=== PATIENT | male | born 1950 | race Caucasian/White ===

== ENCOUNTER 2017-04-21 07:17 | Day surgery (SDC) | payer BC ==
[~2017-04-21] VITALS: Ht 188 cm; Wt 99.8 kg
[~2017-04-21 07:17] MED LIST: ALLOPURINOL300 MG PO; ASPIR 8181 MG PO; ASPIR-TRIN325 MG PO; CRESTOR40 MG PO; FLONASE ALLERG9.9 ML NS; LISINOPRIL20 MG PO; MEGARED OMEGA-1 EAC1 PO; METOPROLOL SUCC50 MG PO; METOPROLOL TART50 MG PO; MULTI VITAMIN1 EACH PO; NAPROSYN500 MG PO; OMEPRAZOLE20 MG PO; SIMVASTATIN80 MG PO
== END 2017-04-21 09:08 | disposition home or self-care (01) ==
LOC: OPS 07:17 → DS 07:17 → OPS 08:30 → DS 08:30 → OPS 09:08 → DS 09:15
PROVIDERS: Ophthalmology
PROC: 08RK3JZ Replacement of Left Lens with Synthetic Substitute, Percutaneous Approach (ICD-10-PCS; principal; 2017-04-21 08:30)
DX: H25.812 Combined forms of age-related cataract, left eye (principal); I10 Essential (primary) hypertension; E78.00 Pure hypercholesterolemia, unspecified; Z87.891 Personal history of nicotine dependence; Z98.890 Other specified postprocedural states; Z79.899 Other long term (current) drug therapy
CPT/HCPCS: 140

== ENCOUNTER 2017-05-14 07:39 | Day surgery (SDC) | payer BC ==
[~2017-05-14] VITALS: Ht 188 cm; Wt 99.8 kg
== END 2017-05-14 09:45 | disposition home or self-care (01) ==
LOC: DS 07:39 → OPS 07:39 → DS 09:00 → OPS 09:45
PROVIDERS: Ophthalmology
PROC: 08RJ3JZ Replacement of Right Lens with Synthetic Substitute, Percutaneous Approach (ICD-10-PCS; principal; 2017-05-14 09:00)
DX: H25.811 Combined forms of age-related cataract, right eye (principal); I10 Essential (primary) hypertension; E78.00 Pure hypercholesterolemia, unspecified; Z79.899 Other long term (current) drug therapy; Z87.891 Personal history of nicotine dependence; Z79.82 Long term (current) use of aspirin
CPT/HCPCS: J2250

== ENCOUNTER 2021-08-09 22:21 | Emergency (ER) | payer MEDICARE, OTHER ==
[~2021-08-09] VITALS: Ht 188 cm; Wt 99.8 kg
[~2021-08-09 22:21] MED LIST changes: +ASPIR-LOW81 MG PO; +FISH OIL 1,0001 EAC2 PO; -MEGARED OMEGA-1 EAC1 PO; +PANTOPRAZOLE SO40 MG PO
--- NOTE | 2021-08-10 07:19 | EKG ---
[facility] [address] [facility] [place], [place] [address] Signed Normal sinus rhythm with sinus arrhythmia Inferior infarct , age undetermined Abnormal ECG No previous ECGs available Confirmed by MARY WALSH MD ([id number]) on 08/10/2021 7:19:14 AM Electronically Signed By: MARY WALSH MD 08/10/21 0719 PATIENT NAME: EVERETTVICKIE JR Electrocardiogram DATE OF : 48 PHYSICIAN: MARY WALSH MD REPORT #: [id number] REPORT IS CONFIDENTIAL AND NOT TO BE RELEASED WITHOUT AUTHORIZATION
== END 2021-08-10 00:49 | disposition home or self-care (01) ==
LOC: ED 22:21
DX: R07.9 Chest pain, unspecified (principal); R06.02 Shortness of breath; I10 Essential (primary) hypertension; M10.9 Gout, unspecified; I25.10 Atherosclerotic heart disease of native coronary artery without angina pectoris; Z87.891 Personal history of nicotine dependence; Z88.5 Allergy status to narcotic agent; Z79.899 Other long term (current) drug therapy; Z79.82 Long term (current) use of aspirin; Z20.822 Contact with and (suspected) exposure to COVID-19
CPT/HCPCS: 36415; 71045; 80053; 83735; 83880; 84484; 85025; 87502; 93005; 93010; 99285-25; C9803; U0003

== ENCOUNTER 2023-04-02 09:22 | Day surgery (SDC) | payer OTHER, MEDICARE ==
[~2023-04-02] VITALS: Ht 188 cm; Wt 108.6 kg
--- NOTE | ~2023-04-02 | CONS ---
[facility] [address] [place], [place] [address] Draft DATE OF CONSULTATION: 04/02/2023 REQUESTING PHYSICIAN: Dr. Alcantara. PROBLEM: Possible recurrent esophageal obstruction with food. HISTORY OF PRESENT ILLNESS: This 72-year-old white man was having stool last night and had a feeling of obstruction in his distal esophagus. Overtime he waited and thought that he might have passed the material completely himself. This morning he took two pills and a sip of water and water returned and he feels that there are still obstructive symptoms. He presented to the emergency room and was evaluated by Dr. Alcantara. He was not noted to have hypersalivation or other overt signs of obstruction. He was challenged with sip of water, which appeared to not be well swallowed. On that basis, consultation was undertaken for consideration of endoscopic removal. Notes are reviewed from the medical record from October 07, 2017, at which time he had a similar presentation. Upper endoscopy performed did show food impaction in the distal esophagus related to meat. He was noted to have chronic distal esophagitis without obvious stricture. No evidence of hiatal hernia. It is unclear if eosinophilic esophagitis was diagnosed, it appears not to have been, though it is unclear if there were biopsies obtained. The patient has remained on PPI medication since that time. He has not had accelerating symptoms of dysphagia up until last night at all. He has been taking pantoprazole 40 mg daily. MEDICATIONS: His other medications include allopurinol, aspirin, fluticasone spray for allergies, lisinopril, metoprolol, multivitamin, omega-3 fatty acids and Crestor. SOCIAL HISTORY: He is retired laundrette owner. He lives in [place]. He gets much of his care from the [facility]. REVIEW OF SYSTEMS: He denies any actual shortness of breath. He has had no hematemesis. He is not having hypersalivation nor has he thus far. He denies any abdominal pain. PHYSICAL EXAMINATION: GENERAL: Pleasant white man who does not appear to be in significant distress at this PATIENT NAME: VICKIE FLOYD JR CONSULTATION DATE OF : 48 REPORT #: [id number] PHYSICIAN: BISHNU ADAMS MD PCP: NO PRIMARY CARE PHYSICIAN REPORT IS CONFIDENTIAL AND NOT TO BE RELEASED WITHOUT AUTHORIZATION [facility] [address] [place], [place] [address] Draft time. NECK: Trachea is midline. He has no hoarseness. There is no thyromegaly. ABDOMEN: Somewhat obese but soft, easily palpated. There is no mass, tenderness, or ascites. EXTREMITIES: Show no clubbing, cyanosis, or edema. LABORATORY DATA: Lab studies are pending, which includes a CBC and a basic metabolic. No x-rays have been obtained. ASSESSMENT: The patient has a similar presentation for food impaction as he did more than five years ago. He has been on PPI medication. I think there is a reasonable chance that there is no obstruction at this time but may have residual sensory effects from recent obstruction including edema and so on. In any case, upper endoscopy would be reasonable to better ascertain the possibility of a food impaction for which removal would be appropriate. The risk of bleeding, infection, perforation, failure to identify an abnormality and so forth were all reviewed in detail. He understands and agrees to proceed. He has yet to have an IV started and labs obtained and we will obtain those prior to embarking upon endoscopic evaluation. We will have the assistance of anesthesia services which might include an endotracheal intubation as a possibility of food impaction is reasonably high and protection of airway would be important. It is not invariably necessary but can be beneficial. We discussed that as well. MD HOUSTON Guardado/GAELL /[id number] cc: Suman Alcantara MD Copies: SUMAN ALCANTARA MD PATIENT NAME: VICKIE FLOYD CONSULTATION DATE OF : 48 REPORT #: [id number] PHYSICIAN: BISHNU ADAMS MD PCP: NO PRIMARY CARE PHYSICIAN REPORT IS CONFIDENTIAL AND NOT TO BE RELEASED WITHOUT AUTHORIZATION [facility] [address] [facility] [place] [address] Draft ~ PATIENT NAME: VICKIE FLOYD CONSULTATION DATE OF : 48 REPORT #: [id number] PHYSICIAN: BISHNU ADAMS MD PCP: NO PRIMARY CARE PHYSICIAN REPORT IS CONFIDENTIAL AND NOT TO BE RELEASED WITHOUT AUTHORIZATION
--- NOTE | ~2023-04-02 | OR ---
[facility] [place] [facility] [address] [place], [place] [address] Draft DATE OF OPERATION: 04/02/2023 SURGEON: Bishnu Adams MD PREOPERATIVE DIAGNOSIS: Food impaction, distal esophagus. POSTOPERATIVE DIAGNOSES: 1. Food impaction, distal esophagus. 2. 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 No clear evidence of eosinophilic esophagitis. PROCEDURES: 1. Esophagogastroduodenoscopy with food disimpaction. 2. Upper endoscopy with biopsy of stomach, duodenum and esophagus. ANESTHESIA: General endotracheal, Bishnu Hall CRNA. INDICATION: This 72-year-old white man is a patient who was seen rather in the emergency room and evaluation by Dr. Alcantara. He is known to me from the past having undergone upper endoscopy and extraction of food impaction for clinical findings of stricture in 2018. The patient continues to take Protonix on a daily basis. Last night he was eating a pork sandwich and had the sensation of food stuck in the distal esophagus. He waited overnight and tried water and other interventions to allow passage of what he felt was an impaction. He presented to the emergency room where he was evaluated by Dr. Alcantara. He did not have hypersalivation and clinically appeared reasonably good, but was unable to tolerate sips of water and on that basis, considered to have persistent impaction of food. He is now to undergo upper endoscopy to free the esophagus of the impaction and other indicated procedures including biopsy. He understands the risk of bleeding, infection, and perforation related to the procedure and wished to proceed. FINDINGS: Indeed there was food impaction in the distal esophagus. Part was extracted upon withdrawal of the impaction. The remaining pushed forward into the stomach itself. The obstruction was in the distal esophagus. It did not appear to have a malignant change. There was chronic inflammatory change, however. The midesophagus had no felinization, however biopsies were obtained there and in the distal esophagus to assess for possible eosinophilic esophagitis. The stomach itself showed mild inflammatory change of the PATIENT NAME: VICKIE FLOYD JR OPERATIVE REPORT DATE OF : 48 REPORT #: [id number] PHYSICIAN: BISHNU ADAMS MD PCP: NO PRIMARY CARE PHYSICIAN REPORT IS CONFIDENTIAL AND NOT TO BE RELEASED WITHOUT AUTHORIZATION [facility] [place] [facility] [address] [place], [place] [address] Draft antrum. CLOtest was negative 15 minutes postprocedure. Duodenum appeared normal. Biopsies were obtained to assess for celiac disease. There was a hiatal hernia. PROCEDURE IN DETAIL: The patient was brought to the endoscopy suite and in the supine position, given a general endotracheal anesthetic. Preoperative antibiotic of Ancef was given. A bite block was placed. An Olympus video upper endoscope was passed in the hypopharynx and manipulated around the intubated vocal cords into the esophagus without problem. The proximal portion was normal. The distal portion had turbid fluid that remained. This was suctioned free. Scope was advanced to the distal esophagus where obvious food impaction was still present. A three-prong grasper was used to morcellate the food impaction typical of pork type meat. It was extracted at least twice. The scope was then inserted again and gentle manipulation of the scope allowed passage around the impaction into the stomach. Scope was withdrawn and the remaining impacted food was flushed into the stomach itself. The scope was withdrawn a few times through the esophagus and irrigated to clear any particulate matter. There appeared in the distal esophagus to be a chronic low-grade stricture. Certainly, no evidence of malignancy, Guzman epithelium or other similar finding. The scope was reinserted into the stomach. Antrum appeared mildly inflamed. Pylorus was normal. Scope was passed through into the duodenum. Duodenum was normal. Biopsies were obtained to assess for celiac disease. The scope was withdrawn. Biopsies taken of the antrum for both ABDULKADIR and pathologic testing. Retroflexed view showed a moderate-size hiatal hernia. The scope was then withdrawn to the distal esophagus and biopsies taken there and withdrawn further to the midesophagus for biopsies. He did not have typical appearance of the eosinophilic esophagitis and most likely this represented a reflux-related stricture as the secondary impaction. The scope was withdrawn and removed. The patient was taken to the recovery room in good condition. CONCLUDING DIAGNOSIS: Food impaction of distal esophagus related to a benign-appearing stricture. Biopsies are pending. PLAN: He will continue with his PPI, Protonix 40 mg daily. We will see him back in the office in 4-6 weeks; he was already scheduled to see us back for screening colonoscopy and we will review his findings at that time as well. Bishnu Adams MD PATIENT NAME: VICKIE FLOYD JR OPERATIVE REPORT DATE OF : 48 REPORT #: [id number] PHYSICIAN: BISHNU ADAMS MD PCP: NO PRIMARY CARE PHYSICIAN REPORT IS CONFIDENTIAL AND NOT TO BE RELEASED WITHOUT AUTHORIZATION [address] [address] Draft /[facility] /[id number] cc: Suman Alcanatra MD Copies: SUMAN ALCANTARA MD ~ PATIENT NAME: VICKIE FLOYD JR OPERATIVE REPORT DATE OF : 48 REPORT #: [id number] PHYSICIAN: BISHNU ADAMS MD PCP: NO PRIMARY CARE PHYSICIAN REPORT IS CONFIDENTIAL AND NOT TO BE RELEASED WITHOUT AUTHORIZATION
[2023-04-02 11:08] LABS: BASOPHILS 1.2 % (0-2); EOSINOPHILS 6.4 % (0-6); HEMATOCRIT 43.1 % (35.0-50.0); HEMOGLOBIN 14.3 g/dL (12.0-18.0); LYMPHOCYTES 26.2 % (24-44); MCH 33.4 (27-36); MCHC 33.1 g/dl (30-36); MCV 100.9 fl (81-99); MONOCYTES 7.5 % (0-12); NEUTROPHILS 58.7 % (39-80); PLATELET COUNT 222 K/uL (140-440); RBC 4.27 M/ul (4.3-5.7); RDW 14.8 (10.5-15.0)
[2023-04-02 11:24] LABS: ALBUMIN 3.8 g/dL (3.4-5.0); ALBUMIN/GLOBULIN RATIO 1.12 (1.1-2.4); BILIRUBIN, TOTAL 0.6 ng/dL (0.2-1.0); BUN/CREATININE RATIO 10.92 (6.0-28.6); CALCIUM 9.5 mg/dL (8.5-10.1); CREATININE, SERUM 1.19 mg/dL (0.70-1.30); PROTEIN, TOTAL 7.2 g/dL (6.4-8.2)
--- NOTE | 2023-04-02 12:45 | NUR ---
04/02/23 Akin5 Nica Davidson 1226 PT TO PACU ORAL AIRWAY IN PLACE, BREATHING SHALLOW, O2 VIA MASK FOGGING NOTED IN MASK. CHIN THRUST NEEDED TO MAINTAIN OPEN AIRWAY
[2023-04-02 13:05] VITALS: BP 158/83
--- NOTE | 2023-04-02 13:49 | NUR ---
1305: PT ARRIVES TO DAY SURGERY UNIT FROM PACU. AWAKE AND ALERT ON ARRIVAL. VSS, RESP EVEN AND UNLABORED. TRACI PO INTAKE AND DENIES PAIN AND NAUSEA. APPLESAUCE PROVIDED. COMFORTABLE WITHOUT NEEDS, CALL LIGHT WITHIN REACH
[2023-04-02 14:10] VITALS: BP 166/84
--- NOTE | 2023-04-02 14:13 | NUR ---
1410: PT WAKES WHEN THIS RN ENTERS THE ROOM. EAGER FOR DC. VSS, RESP EVEN AND UNLABORED. DENIES PAIN AND NAUSEA. DANGLES AT THE BEDSIDE, TRACI WELL. DENIES DIZZINESS AND SOB. SL REMOVED WITH CATH TIP INTACT AND PRESSURE APPLIED, WNL. TO DRESS INDEPENDENTLY FOR DC
--- NOTE | 2023-04-02 14:30 | NUR ---
1415: PT DRESSED AND READY FOR DC. INSTRUCTIONS PROVIDED DISCUSSED AND PT VOICES UNDERSTANDING. DENIES QUESTIONS AND CONCERNS 1420: WHEELED OFF OF UNIT IN WC BY THIS RN. TRANSFERS INTO PASSENGER SIDE OF VEHICLE INDEPENDENTLY AND APPROPRIATELY. NO PHYSICAL S/S OF DISTRESS AT THIS TIME
--- NOTE | 2023-04-08 15:35 | PATH ---
[facility] [address] [place], [place] [address] Signed SPECIMEN(S): A DUODENAL BIOPSY SPECIMEN(S): B ANTRUM/PYLORUS BIOPSY SPECIMEN(S): C DISTAL ESOPHAGEAL BIOPSY SPECIMEN(S): D MID ESOPHAGEAL BIOPSY SPECIMEN SOURCE: A. DUODENAL BIOPSY B. ANTRUM/PYLORUS BIOPSY C. DISTAL ESOPHAGEAL BIOPSY D. MID ESOPHAGEAL BIOPSY CLINICAL HISTORY: Difficulty swallowing. Esophageal obstruction. Postop: Food impaction, stricture, hiatal hernia. FINAL PATHOLOGIC DIAGNOSIS: A. Duodenum, biopsy: - Duodenal mucosa with no significant pathologic changes B. Stomach, antrum/pylorus, biopsy: - Gastric antral mucosa with no significant pathologic changes - Negative for Helicobacter pylori with HE stains C. Esophagus, distal, biopsy: - Esophageal squamous mucosa with no significant pathologic changes D. Esophagus, mid, biopsy: - Esophageal squamous mucosa with no significant pathologic changes BRP MICROSCOPIC EXAMINATION: Histologic sections of all submitted blocks are examined by light microscopy. These findings, together with the gross examination, support the pathologic diagnosis. GROSS DESCRIPTION: A. The specimen, labeled and designated "Rueber, duodenal biopsy," is received in formalin and consists of one lind soft tissue fragment, 0.4 cm. Entirely submitted in (A1). B. The specimen, labeled and designated "Rueber, antrum/pylorus biopsy," is received in formalin and consists of two lind soft tissue fragments, ranging from 0.4-0.5 cm. Entirely submitted in (B1). C. The specimen, labeled and designated "Rueber, distal esophageal biopsy," is received in formalin and consists of four lind soft tissue fragments, ranging PATIENT NAME: VICKIE FLOYD JR PATHOLOGY DATE OF : 48 REPORT #: [id number] PHYSICIAN: CAREN CRUZ PCP: NO PRIMARY CARE PHYSICIAN REPORT IS CONFIDENTIAL AND NOT TO BE RELEASED WITHOUT AUTHORIZATION [facility] [address] [place], [place] [address] Signed from 0.2-0.6 cm. Entirely submitted in (C1). D. The specimen, labeled and designated "Rueber, mid esophageal biopsy," is received in formalin and consists of four lind soft tissue fragments, ranging from 0.4-0.5 cm. Entirely submitted in (D1). VB (under the direct supervision of a pathologist) The Gross Description was prepared using a voice recognition system. The report was reviewed for accuracy; however, sound-alike word errors, addition and/or deletions may occur. If there is any question about this report, please contact Client Services. ADDITIONAL NOTES: Immunohistochemical and/or in situ hybridization studies if performed in this case included appropriate positive controls that reacted as expected. This test was developed and its performance characteristics determined by [facility]. It has not been cleared or approved by the U.S. Food and Drug Administration. The FDA has determined that such clearance or approval is not necessary. This test is used for clinical purposes. It should not be regarded as investigational or for research. [facility] is certified under the Clinical Laboratory Improvement Amendments of 1988 (CLIA) as qualified to perform high complexity clinical laboratory testing. PERFORMING LABORATORY: Technical component was performed by [facility], [address] [place] [address] (CLIA# [id number]). Professional interpretation was performed by [facility], [address] [place] [address] (CLIA#: [id number]). Diagnostician: Shree Mcmullen MD Pathologist Electronically Signed 04/08/2023 Copies: ~ PATIENT NAME: EVERETTVICKIE JR PATHOLOGY DATE OF : 48 REPORT #: [id number] PHYSICIAN: CAREN CRUZ PCP: NO PRIMARY CARE PHYSICIAN REPORT IS CONFIDENTIAL AND NOT TO BE RELEASED WITHOUT AUTHORIZATION
== END 2023-04-02 14:22 | disposition home or self-care (01) ==
LOC: ED 09:22 → DS 11:29 → DSVR 11:29 → DS 14:22
PROVIDERS: Emergency Medicine; ATTEND Surgery
PROC: 0DB78ZX Excision of Stomach, Pylorus, Via Natural or Artificial Opening Endoscopic, Diagnostic (ICD-10-PCS; 2023-04-02)
PROC: 0DC38ZZ Extirpation of Matter from Lower Esophagus, Via Natural or Artificial Opening Endoscopic (ICD-10-PCS; 2023-04-02)
PROC: 0DB28ZX Excision of Middle Esophagus, Via Natural or Artificial Opening Endoscopic, Diagnostic (ICD-10-PCS; principal; 2023-04-02 12:00)
DX: K22.2 Esophageal obstruction (principal); T18.128A Food in esophagus causing other injury, initial encounter; I10 Essential (primary) hypertension; M10.9 Gout, unspecified; I25.10 Atherosclerotic heart disease of native coronary artery without angina pectoris; Z79.899 Other long term (current) drug therapy
CPT/HCPCS: 00731; 36415; 80053; 85025; 99284; J0330; J0690; J1100; J1885; J2405; J7030

== ENCOUNTER 2023-11-21 09:40 | Day surgery (SDC) | payer OTHER ==
[2023-11-19 11:20] VITALS: BP 133/68
[~2023-11-21] VITALS: Ht 188 cm; Wt 102.3 kg
[~2023-11-21 09:40] MED LIST changes: +AMLODIPINE BES2.5 MG PO; +CEFAZOLIN SODIUM 2 GM/20 ML SYR IV SCH; +IBLOOD GLUCOSE TEST STRIP 1 EA TEST VI PRN; +LACTATED RINGER'S 1,000 ML IV SCH; +LIDOCAINE HCL 1% 5 ML SDV INJ ONE; +RAMIPRIL1.25 MG PO
[2023-11-21 09:49] VITALS: BP 145/66
[2023-11-21] MEDS ORDERED: propofoL 200 MG/20 ML VIAL ONE (09:53)
--- NOTE | 2023-11-21 11:47 | NUR ---
11/21/23 1147 Adela Garcia 1134 PT ARRIVED TO PACU ON RA, RESP EVEN AND UNLABORED. PT WAKES EASILY AND DENIES CONCERNS. PLAN OF CARE DISCUSSED, PT ENCOURAGED TO PASS GAS NEEDED. 1146 PT SITTING UP IN BED AND REQUESTING WATER. DENIES CONCERNS.
[2023-11-21 11:58] VITALS: BP 139/73
--- NOTE | 2023-11-22 11:23 | OR ---
[facility] [address] [place], [place] [address] Signed DATE OF OPERATION: 11/21/2023 SURGEON: Bishnu Adams MD PREOPERATIVE DIAGNOSIS: Colon screening. POSTOPERATIVE DIAGNOSES: 1. Extensive (bain) diverticulosis. 2. Polyps x3. PROCEDURES: Total colonoscopy to cecum with cold morcellation polypectomy x1 and cold snare polypectomy x2. ANESTHESIA: Intravenous sedation, propofol infusion; Merrill Arthur CRNA. INDICATION: This 73-year-old white man is a patient of Dalia Gale and underwent colonoscopy a number of years ago in [place], [place]. He was said to have had two polyps then. He currently has no symptoms of bleeding, diarrhea or constipation and no known family history of colon cancer. He was admitted at this time to undergo colonoscopy for screening. He understands the risk of bleeding, infection, and perforation. FINDINGS: The prep was adequate. Complete colonoscopy was undertaken to the cecum. There were three polyps, one in the proximal ascending colon, another in the proximal transverse and another in the low rectum, all excised completely. PROCEDURE IN DETAIL: The patient was brought to the endoscopy suite and placed in lateral decubitus position. He was given Ancef preoperatively for history of joint replacement therapy. After satisfactory sedation by the tooth cutter spur with propofol infusional technique, digital rectal exam was performed which was normal. An Olympus video colonoscope was passed in the rectum and manipulated throughout the colon noting extensive diverticulosis extending from the sigmoid all the way to the right colon. Ultimately, the cecum was entered fully. Irrigation was undertaken as needed. The scope was withdrawn and immediately noted was a small polyp of the proximal Electronically Signed By: BISHNU ADAMS MD 11/22/23 1123 PATIENT NAME: VICKIE FLOYD JR OPERATIVE REPORT DATE OF : 48 REPORT #: [id number] PHYSICIAN: BISHNU ADAMS MD PCP: ZOE PARRA PAC REPORT IS CONFIDENTIAL AND NOT TO BE RELEASED WITHOUT AUTHORIZATION [facility] [address] [place], [place] [address] Signed ascending colon which was excised with cold morcellation technique. Further withdrawal showed diverticula of the right colon and the right transverse colon. A somewhat larger adenomatous appearing polyp, this was excised with cold snare technique and specimen passed for pathology. Further withdrawal showed extensive diverticula but on retroflexed view of the rectum, a somewhat generous 1 cm sessile polyp was noted, this was excised with cold morcellation technique. The base was additionally excised as there was some residual. The scope was then straightened, withdrawn, removed and the patient was taken to the recovery room in good condition. CONCLUDING DIAGNOSES: 1. Polyps x3. 2. Extensive diverticulosis. PLAN: Recommend repeat colonoscopy in 5 years, sooner if symptoms should develop. Recommend high-fiber diet or fiber supplement such as Metamucil on the basis of diverticulosis. He will return to the ongoing care of NGUYEN Spear. MD HOUSTON Guardado/SHAWN /[id number] cc: NGUYEN Spear Copies: ~ Electronically Signed By: BISHNU ADAMS MD 11/22/23 1123 PATIENT NAME: VICKIE FLOYD JOES OPERATIVE REPORT DATE OF : 48 REPORT #: [id number] PHYSICIAN: BISHNU ADAMS MD PCP: ZOE PARRA PAC REPORT IS CONFIDENTIAL AND NOT TO BE RELEASED WITHOUT AUTHORIZATION
--- NOTE | 2023-11-24 15:39 | PATH ---
[facility] [address] [place], [place] [address] Signed SPECIMEN(S): A ASCENDING/RIGHT COLON POLYP SPECIMEN(S): B TRANSVERSE COLON POLYP SPECIMEN(S): C RECTAL POLYP SPECIMEN SOURCE: A. ASCENDING/RIGHT COLON POLYP B. TRANSVERSE COLON POLYP C. RECTAL POLYP CLINICAL HISTORY: Pre-op: History of polyps. Post-op: Diverticulosis. FINAL PATHOLOGIC DIAGNOSIS: A. Ascending/right colon polyp: - Tubular adenoma (one fragment). B. Transverse colon polyp: - Tubular adenoma (two fragments). C. Rectal polyp: - Hyperplastic polyp (two fragments). JVR:cml MICROSCOPIC EXAMINATION: Histologic sections of all submitted blocks are examined by light microscopy. These findings, together with the gross examination, support the pathologic diagnosis. GROSS DESCRIPTION: A. The specimen, labeled and designated "Rueber, ascending/right colon polyp," is received in formalin and consists of one lind soft tissue fragment, 0.2 cm. Entirely submitted in (A1). B. The specimen, labeled and designated "Rueber, transverse colon polyp," is received in formalin and consists of three lind soft tissue fragments, ranging from 0.2-0.4 cm. Entirely submitted in (B1). C. The specimen, labeled and designated "Rueber, rectal polyp," is received in formalin and consists of four lind soft tissue fragments, ranging from 0.3-0.5 cm. Entirely submitted in (C1). VB (under the direct supervision of a pathologist) The Gross Description was prepared using a voice recognition system. The report was reviewed for accuracy; however, sound-alike word errors, addition and/or deletions may occur. If there is any question about this report, please contact Client Services. PATIENT NAME: VICKIE FLOYD JR PATHOLOGY DATE OF : 48 REPORT #: [id number] PHYSICIAN: CAREN PATHOLOGY PCP: ZOE PARRA PAC REPORT IS CONFIDENTIAL AND NOT TO BE RELEASED WITHOUT AUTHORIZATION [facility] [address] [place], [place] [address] Signed ADDITIONAL NOTES: Immunohistochemical and/or in situ hybridization studies if performed in this case included appropriate positive controls that reacted as expected. This test was developed and its performance characteristics determined by [facility]. It has not been cleared or approved by the U.S. Food and Drug Administration. The FDA has determined that such clearance or approval is not necessary. This test is used for clinical purposes. It should not be regarded as investigational or for research. [facility] is certified under the Clinical Laboratory Improvement Amendments of 1988 (CLIA) as qualified to perform high complexity clinical laboratory testing. PERFORMING LABORATORY: Technical component was performed by [facility], [address] [place] [address] (CLIA# [id number]). Professional interpretation was performed by [facility], [address] [place] [address], [place] [address] (CLIA#: [id number]). Diagnostician: Jaren Daley MD Pathologist Electronically Signed 11/24/2023 Copies: ~ PATIENT NAME: EVERETTVICKIE JR PATHOLOGY DATE OF : 48 REPORT #: [id number] PHYSICIAN: CAREN PATHOLOGY PCP: ZOE PARRA PAC REPORT IS CONFIDENTIAL AND NOT TO BE RELEASED WITHOUT AUTHORIZATION
== END 2023-11-21 12:08 | disposition home or self-care (01) ==
LOC: OPS 09:40 → DS 09:40 → OPS 11:00 → DS 11:00 → OPS 12:08
PROVIDERS: ATTEND Surgery
PROC: 0DBL8ZZ Excision of Transverse Colon, Via Natural or Artificial Opening Endoscopic (ICD-10-PCS; 2023-11-21)
PROC: 0DBP8ZZ Excision of Rectum, Via Natural or Artificial Opening Endoscopic (ICD-10-PCS; 2023-11-21)
PROC: 0DBF8ZZ Excision of Right Large Intestine, Via Natural or Artificial Opening Endoscopic (ICD-10-PCS; principal; 2023-11-21 11:00)
DX: Z12.11 Encounter for screening for malignant neoplasm of colon (principal); D12.2 Benign neoplasm of ascending colon; D12.3 Benign neoplasm of transverse colon; K62.1 Rectal polyp; K57.30 Diverticulosis of large intestine without perforation or abscess without bleeding; E66.9 Obesity, unspecified; I10 Essential (primary) hypertension; I25.2 Old myocardial infarction; Z68.29 Body mass index [BMI] 29.0-29.9, adult; Z95.5 Presence of coronary angioplasty implant and graft
CPT/HCPCS: J0690; J2704; J7121

== ENCOUNTER 2024-02-21 19:16 | Day surgery (SDC) | payer OTHER ==
[~2024-02-21] VITALS: Ht 188 cm; Wt 107.6 kg
--- NOTE | ~2024-02-21 | HP ---
[facility] [address], [place] [address] Draft ADMISSION DATE: 02/21/2024 ADMISSION HISTORY AND PHYSICAL ER CONSULTATION REPORT TIME: 08:30 p.m. REQUESTING PHYSICIAN: Dr. Placido Arias PROBLEM: Recurrent food impaction. HISTORY OF PRESENT ILLNESS: This 73-year-old white man was eating a meal tonight at about 6:00 p.m. when half way through the meal began having trouble swallowing and with symptoms highly suggestive of food impaction. He is known to me from the past having undergone two food extractions in the past. He has never shown sign of the eosinophilic esophagitis and had only a low-grade stricture on his last episode of this in the past few years. The patient gets most of his care from the [facility]. He tried to "wash it down" with some soda pop, which was not effective. He presented to the emergency room where he was thoroughly evaluated by Dr. Arias and found most likely to have persistent food impaction as he has episodic hypersalivation and eructation of saliva. PAST MEDICAL HISTORY: Notable for bilateral knee replacement. He has had coronary stenting in the past. He takes no significant anticoagulants, specifically Plavix or other anticoagulant. HOME MEDICATIONS: Include allopurinol, amlodipine, aspirin daily, fluticasone spray for nostril, lisinopril metoprolol, multivitamin, pantoprazole 40 mg daily, ramipril and rosuvastatin. REVIEW OF SYSTEMS: He denies any shortness of breath or chest pain. He has had no abdominal pain. He continues to have perception of food impaction. PHYSICAL EXAMINATION: GENERAL: Large white man who looks to be generally comfortable and not hypersalivation PATIENT NAME: VICKIE FLOYD JR HISTORY AND PHYSICAL DATE OF : 48 REPORT #: [id number] PHYSICIAN: BISHNU [place] MD PCP: ZOE PARRA PAC REPORT IS CONFIDENTIAL AND NOT TO BE RELEASED WITHOUT AUTHORIZATION [facility] [address], [place] [address] Draft at the moment. VITAL SIGNS: At presentation it showed temperature 97.9, pulse 77, blood pressure 155/86. HEENT: Trachea is midline. He has no crepitus. NECK: He has no hoarseness. CHEST: Clear. HEART: Regular without murmur. ABDOMEN: Obese, but soft. There is no tenderness or mass. EXTREMITIES: Show no clubbing, cyanosis, or edema. LABORATORY DATA: Lab studies were obtained, which showed a white count of 9.6, hematocrit , platelets 205,000. Coag studies are pending. A Chem profile also pending. Review of his record confirms colonoscopy performed in July of 2023 and November of 2023, and upper endoscopy performed in 2018 for food impaction. ASSESSMENT: The patient has clinical evidence of food impaction again with pork. We both agree that maybe he should not be eating pork going forward. He does take his PPI medication on a routine basis and has never been demonstrated to have eosinophilic esophagitis, but has had low-grade stricture in the past. I have recommended upper endoscopy to extraction of the impaction or passage forward depending on what is safest. The risk of bleeding, infection, and perforation were reviewed with him. He understands and wished to proceed. An IV has been established. Ancef 2 g to be given on the basis of prophylaxis for his joint replacement history. MD HOUSTON Guardado/GAELL /[id number] cc: [facility] PATIENT NAME: VICKIE FLOYD JR HISTORY AND PHYSICAL DATE OF : 48 REPORT #: [id number] PHYSICIAN: BISHNU [place] MD PCP: ZOE PARRA PAC REPORT IS CONFIDENTIAL AND NOT TO BE RELEASED WITHOUT AUTHORIZATION [facility] [address], [place] [address] Draft PLACIDO ARIAS MD Copies: ~ PATIENT NAME: VICKIE FLOYD JR HISTORY AND PHYSICAL DATE OF : 48 REPORT #: [id number] PHYSICIAN: BISHNU [place] MD PCP: ZOE PARRA PAC REPORT IS CONFIDENTIAL AND NOT TO BE RELEASED WITHOUT AUTHORIZATION
--- NOTE | ~2024-02-21 | OR ---
[facility] [address] [facility] [place], [place] [address] Draft DATE OF OPERATION: 02/21/2024 SURGEON: Bishnu [place] MD TIME: 09:30 p.m. PROBLEM: Recurrent food impaction distal esophagus (pork). POSTOPERATIVE DIAGNOSES: 1. Recurrent food impaction distal esophagus (pork). 2. Low-grade distal esophageal stricture. PROCEDURES: 1. Esophagogastroduodenoscopy with biopsy (distal and mid esophagus. 2. Extraction of food impaction (pork) with Arellano-Net. ANESTHESIA: General endotracheal. Viktoria He CRNA. INDICATION: This 73-year-old white man presented to the emergency room was evaluated by Dr. Norris with complaints of food impaction of the distal esophagus. He ate about 6 o'clock, presented about 8 o'clock and was promptly evaluated by Dr. Norris. He has episodic hypersalivation. Of great notes, he has undergone food disimpaction of the esophagus at least two times before both times with pork. He has been fluid resuscitated, given intravenous antibiotic Ancef on the basis of joint replacement therapy now to undergo upper endoscopy to relieve the obstruction. He understands risk of bleeding, infection, and perforation and wished to proceed. FINDINGS: Indeed there was impacted food in the distal esophagus. A very large amount of meat was identified and extracted with a Arellano-Net. It appeared that the food had been chewed rather poorly. He did have a low-grade distal esophageal stricture that did not appear malignant. There was no clinical evidence of the eosinophilic esophagitis. The stomach and PATIENT NAME: VICKIE FLOYD JR OPERATIVE REPORT DATE OF : 48 REPORT #: [id number] PHYSICIAN: BISHNU [place] MD PCP: ZOE PARRA PAC REPORT IS CONFIDENTIAL AND NOT TO BE RELEASED WITHOUT AUTHORIZATION [facility] [address] [place], [place] [address] Draft duodenum were not normal otherwise. The flap valve was poor. PROCEDURE IN DETAIL: The patient was brought to the endoscopy suite placed in the supine position, given a general endotracheal anesthetic. Preoperative antibiotic Ancef was given. After satisfactory general endotracheal anesthesia, a bite block was placed. An Olympus video upper endoscope was passed in the hypopharynx and easily into the esophagus. The esophagus was normal down to the distal portion where there was a rounded obvious food impaction. A Arellano-Net was used to incorporate the bolus and it was carefully extracted and removed. It appeared to be hardly chewed from what I could tell. The scope was reintroduced once again and there was an additional bit of material that required removal and it was extracted also. The scope was passed once again down the esophagus into the stomach, showed normal rugal folds. The pylorus was normal. Duodenum was normal. Scope was withdrawn. Retroflexed view undertaken showing a poor flap valve. The scope was withdrawn to the distal esophagus where a somewhat inflamed low-grade stricture was noted, this was biopsied. The scope was withdrawn to the mid esophagus and biopsies taken there as well to assess for eosinophilic esophagitis. The scope was fully withdrawn and removed. The patient was taken to the recovery room in good condition. CONCLUDING DIAGNOSIS: Successful extraction of distal esophageal food impaction (pork). PLAN: Continued use of Protonix would be appropriate. We will see him back in the office in a few weeks, anticipating consideration for an outpatient dilation of the esophagus. In the meantime, he should have no meat or bread for at least 48 hours. He is advised to chew very well and if he has other problems, he will let me know in the meantime. MD HOUSTON Guardado/SHAWN /[id number] cc: [facility] PATIENT NAME: EVERETTVICKIEKesha GARCIA OPERATIVE REPORT DATE OF : 48 REPORT #: [id number] PHYSICIAN: BISHNU [place] MD PCP: ZOE PARRA PAC REPORT IS CONFIDENTIAL AND NOT TO BE RELEASED WITHOUT AUTHORIZATION [facility] [address] [facility] [place], [place] [address] Draft Placido Norris MD [facility] Copies: ~ PATIENT NAME: VICKIE FLOYD JR OPERATIVE REPORT DATE OF : 48 REPORT #: [id number] PHYSICIAN: BISHNU [place] MD PCP: ZOE PARRA PAC REPORT IS CONFIDENTIAL AND NOT TO BE RELEASED WITHOUT AUTHORIZATION
[~2024-02-21 19:16] MED LIST changes: -CEFAZOLIN SODIUM 2 GM/20 ML SYR IV SCH; -IBLOOD GLUCOSE TEST STRIP 1 EA TEST VI PRN; -LACTATED RINGER'S 1,000 ML IV SCH; -LIDOCAINE HCL 1% 5 ML SDV INJ ONE; +SEVOFLURANE 250 ML BTL INH ONE
[2024-02-21] MEDS ORDERED: LACTATED RINGER'S 1,000 ML IV SCH (20:00)
[2024-02-21 20:21] LABS: HEMOGLOBIN 13.4 g/dL (12.0-18.0)
[2024-02-21 20:24] LABS: BASOPHILS 1.1 % (0-2); EOSINOPHILS 6.6 % (0-6); LYMPHOCYTES 27.9 % (24-44); MCHC 34.3 g/dl (30-36); MCV 98.9 fl (81-99); MONOCYTES 7.4 % (0-12); PLATELET COUNT 205 K/uL (140-440); RBC 3.94 M/ul (4.3-5.7); RDW 14.9 (10.5-15.0)
[2024-02-21] MEDS ORDERED: CEFAZOLIN SODIUM 2 GM/20 ML SYR IV ONE (20:30)
[2024-02-21 20:31] LABS: INR 0.95 (0.80-1.30); PROTIME 12.3 Sec (11.2-14.2)
[2024-02-21 20:36] LABS: ALBUMIN 3.5 g/dL (3.4-5.0); ALBUMIN/GLOBULIN RATIO 1.03 (1.1-2.4); ANION GAP 14.3 (7-21); BILIRUBIN, TOTAL 0.3 ng/dL (0.2-1.0); BUN/CREATININE RATIO 10.55 (6.0-28.6); CALCIUM 9.1 mg/dL (8.5-10.1); CREATININE, SERUM 2.18 mg/dL (0.70-1.30); MAGNESIUM 1.9 mg/dL (1.8-2.4); PHOSPHORUS, INORGANIC 3.6 mg/dL (2.5-4.9); POTASSIUM 4.3 mmol/L (3.5-5.1); PROTEIN, TOTAL 6.9 g/dL (6.4-8.2)
[2024-02-21] MEDS ORDERED: LIDOCAINE HCL 2% 5 ML SDV ONE (20:59)
[2024-02-21] MEDS ORDERED: propofoL 200 MG/20 ML VIAL ONE (20:59)
[2024-02-21] MEDS ORDERED: SUCCINYLCHOLINE IN 0.9% NACL 200 MG/10 ML SYRINGE ONE (20:59)
--- NOTE | 2024-02-21 21:57 | NUR ---
02/21/242156 CHEN FRAIRE 2128 PT ARRIVED TO PACU VIA STREACHER, PT HAS NATURAL AIRWAY AND ON 6L OF OXYGEN VIA MASK. PT BREATHING EQUAL AND UNLABORED. PT AWAKE AND CAN TALK AND ANSWER QUESTIONS. ALL MONITORS ATTACHED. PT SITTING UPRIGHT. REPORT TAKEN FROM NATALIYA MARIE. PT REPORTING NO PAIN OR NAUSEA AT THIS TIME. 2134 PT REMOVED FROM OXYGEN DUE TO PT OXYGEN SATURATION STAYING ABOVE 96% ON OXYGEN. PT MAINTINING OXYGEN SATURATION ABOVE 90% ON RA. 2139 DOC AT BEDSIDE DISCUSSING PT RIDE HOME. PT DOES NOT HAVE A RIDE HOME, DISCUSSED EXTENDED STAY FOR 7 HOURS FOR ANESTEHSIA TO WEAR OFF. PT AGREEABLE TO THIS PLAN. PT WILL BE TRANSFERRED TO [facility] FLOOR FOR EXTENDED OBSERVATION. PT REPORTING NO PAIN OR NAUSEA AT THIS TIME.
[2024-02-21 22:10] VITALS: BP 155/82; BP 166/85
--- NOTE | 2024-02-21 22:27 | EKG ---
[facility] [address] [facility] [place] [address] Signed Normal sinus rhythm Inferior infarct (cited on or before 29-JAN-2016) Abnormal ECG When compared with ECG of 19-NOV-2023 11:27, aberrant conduction is no longer present Confirmed by Gaetano Pollock MD () on 02/21/2024 10:26:47 PM Electronically Signed By: GAETANO POLLOCK MD 02/21/24 2227 PATIENT NAME: VICKIE FLOYD JR Electrocardiogram DATE OF : 48 PHYSICIAN: GAETANO POLLOCK MD REPORT #: [id number] REPORT IS CONFIDENTIAL AND NOT TO BE RELEASED WITHOUT AUTHORIZATION
[2024-02-21 22:33] VITALS: BP 166/85
--- NOTE | 2024-02-21 22:36 | NUR ---
2204 - ADMITTED TO ROOM 109 - EXTENDED SURGERY FROM PACU. ALERT AND ORIENTED, TRANSFERRED SELF FROM GOURNEY TO BED AND THEN UP TO BRP, VOIDED LARGE AMOUNS OF CLEAR YELLOW URINE, NO C/O PAIN. ON ROOM AIR, ALERT AND ORIENTED. PLEASANT AND COOPERATIVE. SL LAC. NO C/O PAIN OR SOB WITH EXERTION. ORIENTED TO ROOM, WATCHING TV. PT IS TO BE DC'S IN AM '"TAXIS START AT 0500, I WILL BE READY AT THAT TIME," STATED
[2024-02-22 01:42] VITALS: BP 159/80
[2024-02-22 01:43] VITALS: BP 159/80
--- NOTE | 2024-02-22 03:34 | NUR ---
Resting, on room air, no s/sx distress
[2024-02-22 05:01] VITALS: BP 155/84
[2024-02-22 05:17] VITALS: BP 155/84
--- NOTE | 2024-02-22 05:23 | NUR ---
0500 - Pt used call light, ready to go home, tolerating liquids well, slept well, no c/o pain. voiding qs. charge nurse and metal furniture assembly supervisor notified as pt needs a taxi ride home- 514 - Dc instructions given. all questions answered. TRIBE, repeat back of soft diet and to cut foot into small pieces, aware that he needs to call Dr Ignacio office Friday/Friday and make an apt to be seen in 3-4 weeks. Alert and oriented. no c/o pain pt dressed self. 0520 - Pt dc'd home via w/c to front Lobby as Taxi should be here in a few minutes to take him home
--- NOTE | 2024-02-25 12:44 | PATH ---
[facility] [address] [facility] [place] [address] Signed SPECIMEN(S): A DISTAL ESOPHAGEAL BIOPSY SPECIMEN(S): B MID ESOPHAGEAL BIOPSY SPECIMEN SOURCE: A. DISTAL ESOPHAGEAL BIOPSY B. MID ESOPHAGEAL BIOPSY CLINICAL HISTORY: Esophageal foreign body, distal esophageal stricture, low-grade FINAL PATHOLOGIC DIAGNOSIS: A. Distal esophageal biopsy: - Gastroesophageal mucosa with reflux-type changes. - Negative for increase in eosinophils - Negative for goblet cell metaplasia. B. Mid esophageal biopsy: - Esophageal mucosa with no significant pathologic abnormalities. - Negative for inflammation or goblet cell metaplasia. NA MICROSCOPIC EXAMINATION: Histologic sections of all submitted blocks are examined by light microscopy. These findings, together with the gross examination, support the pathologic diagnosis. GROSS DESCRIPTION: A. The specimen, labeled and designated "Madelyn, distal esophageal biopsy," is received in formalin and consists of three lind soft tissue fragments, ranging from 0.2-0.3 cm. Entirely submitted in (A1). B. The specimen, labeled and designated "Madelyn, mid esophageal biopsy," is received in formalin and consists of one lind soft tissue fragment, 0.5 cm. Entirely submitted in (B1). VB (under the direct supervision of a pathologist) The Gross Description was prepared using a voice recognition system. The report was reviewed for accuracy; however, sound-alike word errors, addition and/or deletions may occur. If there is any question about this report, please contact Client Services. ADDITIONAL NOTES: Immunohistochemical and/or in situ hybridization studies if performed in this PATIENT NAME: VICKIE FLOYD JR PATHOLOGY DATE OF : 48 REPORT #: [id number] PHYSICIAN: CAREN CRUZ PCP: ZOE PARRA PAC REPORT IS CONFIDENTIAL AND NOT TO BE RELEASED WITHOUT AUTHORIZATION [address] [address] Signed case included appropriate positive controls that reacted as expected. This test was developed and its performance characteristics determined by [facility]. It has not been cleared or approved by the U.S. Food and Drug Administration. The FDA has determined that such clearance or approval is not necessary. This test is used for clinical purposes. It should not be regarded as investigational or for research. [facility] is certified under the Clinical Laboratory Improvement Amendments of 1988 (CLIA) as qualified to perform high complexity clinical laboratory testing. PERFORMING LABORATORY: Technical component was performed by [facility], [address] [place] [address] (CLIA# [id number]). Professional interpretation was performed by [facility], [address] [place] [address] (CLIA#: [id number]). Diagnostician: Forest Mendez MD Pathologist Electronically Signed 02/25/2024 Copies: ~ PATIENT NAME: VICKIE FLOYD JR PATHOLOGY DATE OF : 48 REPORT #: [id number] PHYSICIAN: CAREN PATHOLOGY PCP: ZOE PARRA PAC REPORT IS CONFIDENTIAL AND NOT TO BE RELEASED WITHOUT AUTHORIZATION
== END 2024-02-22 05:15 | disposition home or self-care (01) ==
LOC: ED 19:16 → DS 22:01 → DSVR 22:02 → MS 22:02 → DS 02-22 05:15
PROVIDERS: Internal Medicine; ATTEND Surgery
PROC: 0DC58ZZ Extirpation of Matter from Esophagus, Via Natural or Artificial Opening Endoscopic (ICD-10-PCS; 2024-02-21)
PROC: 0DB58ZX Excision of Esophagus, Via Natural or Artificial Opening Endoscopic, Diagnostic (ICD-10-PCS; principal; 2024-02-21 20:56)
DX: T18.128A Food in esophagus causing other injury, initial encounter (principal); K22.2 Esophageal obstruction; I10 Essential (primary) hypertension; I25.10 Atherosclerotic heart disease of native coronary artery without angina pectoris; Z87.891 Personal history of nicotine dependence; Z88.5 Allergy status to narcotic agent; Z79.82 Long term (current) use of aspirin; Z79.899 Other long term (current) drug therapy
CPT/HCPCS: 00813; 36415; 71045; 80053; 83735; 84100; 85025; 85610; 85730; 93005; 93010; 96360; 96361; 96374; 99284-25; J0330; J0690; J2003; J2704; J7121

== ENCOUNTER 2024-03-30 10:19 | Day surgery (SDC) | payer OTHER ==
[~2024-03-30] VITALS: Ht 188 cm; Wt 104.5 kg
[~2024-03-30 10:19] MED LIST changes: +ALTACE10 MG; +CEFAZOLIN SODIUM 2 GM/20 ML SYR IV SCH; +IBLOOD GLUCOSE TEST STRIP 1 EA TEST VI PRN; +JARDIANCE25 MG PO; +LACTATED RINGER'S 1,000 ML IV SCH; +LIDOCAINE HCL 1% 5 ML SDV INJ ONE; -SEVOFLURANE 250 ML BTL INH ONE; +[UNRECOGNIZED DRUG - OTHER] PO
[2024-03-30 10:37] VITALS: BP 129/67
[2024-03-30] MEDS ORDERED: propofoL 200 MG/20 ML VIAL ONE (14:24)
[2024-03-30] MEDS ORDERED: LIDOCAINE HCL 2% 5 ML SDV ONE (14:24)
--- NOTE | 2024-03-30 14:59 | NUR ---
03/30/24 1459 Ana Hu 1451-PT TO PACU IN SUPINE POSITION. EYES CLOSED. DOES NOT RESPOND TO VERBAL STIMULI. BREATHING EASY AND UNLABORED WITH ORAL AIRWAY IN PLACE. SPO2 >95% ON 5 L O2 VIA NC. 1453-PT RESPONDS TO VERBAL AND TACTILE STIMULI, LIFTS HEAD AND OPENS MOUTH. ORAL AIRWAY REMOVED. BREATHING EASY AND UNLABORED. SPO2 >95% ON 2 L O2 VIA NC. 1457-PT AWAKENS SPONTANEOUSLY. COMMENTS MADE ABOUT THE PROCEDURE THEN FALLS QUICKLY BACK TO SLEEP. BREATHING EASY AND UNLABORED WITH INTERMITTANT SNORING. SPO2 >95% ON 2 L O2 VIA NC.
[2024-03-30 15:31] VITALS: BP 129/71
--- NOTE | 2024-03-30 19:51 | OR ---
[facility] [address] [place], [place] [address] Signed DATE OF OPERATION: 03/30/2024 SURGEON: Bishnu [place] MD Social Sciences Professor Surgeon : Samm [place] MD PREOPERATIVE DIAGNOSIS: History of recurrent food impaction last in January 2024 with stricture. POSTOPERATIVE DIAGNOSIS: Hiatal hernia with resolved stricture. PROCEDURE: Esophagogastroduodenoscopy with biopsy. ANESTHESIA: Intravenous sedation propofol infusion; Sergio Redman CRNA. INDICATION: This 73-year-old white man underwent food disimpaction by me in January of this year. This was the third food impaction over time. He was noted to have a low-grade stricture but no sign of neoplasm. There was no evidence of eosinophilic esophagitis. He is now feeling quite well overall and is not having any significant dysphagia moment to moment, though has had some episodes of "slow swallowing." I have admitted him at this time to undergo upper endoscopy to assess for possible esophageal dilation of what was noted to be a low-grade stricture on his upper endoscopy at time of food impaction. The risk of bleeding, infection, perforation, and so forth were reviewed with him. FINDINGS: The stricture had largely healed. There was a hiatal hernia. There was no evidence of the eosinophilic esophagitis. Stomach and duodenum were normal, though he did have hiatal hernia as noted. DESCRIPTION OF PROCEDURE: The patient was brought to the endoscopy suite and placed in the supine position, given intravenous sedation with propofol infusional technique per the geophysical e logger. A bite block was placed. An Olympus video upper endoscope was passed in the hypopharynx. Vocal cords were normal. Scope was advanced to the esophagus throughout its length, it was actually normal. The distal portion did show the area of previous stricture, but was soft, supple and easily yielding and not obstructive in the slightest. There was no sign of Guzman's epithelium or neoplasm or ulceration. Electronically Signed By: BISHNU [place] MD 03/30/241950 PATIENT NAME: VICKIE FLOYD JR OPERATIVE REPORT DATE OF : 48 REPORT #: [id number] PHYSICIAN: BISHNU [place] MD PCP: ZOE PARRA PAC REPORT IS CONFIDENTIAL AND NOT TO BE RELEASED WITHOUT AUTHORIZATION [facility] [address] [place], [place] [address] Signed The scope was passed in the stomach which was insufflated with air. Rugal folds were normal. Pylorus was normal. Scope was passed through into the duodenum, which was normal. Scope was withdrawn and retroflexed view undertaken showing hiatal hernia as previous. Scope was straightened, withdrawn to the distal esophagus where biopsies were taken of the area of former stricture. The scope was withdrawn to the mid esophagus where biopsies were additionally taken to assess for eosinophilic esophagitis. The scope was carefully withdrawn and removed. There were no other findings of note. CONCLUDING DIAGNOSIS: Stricture largely resolved; no doubt related to hiatal hernia. PLAN: Continued use of PPI medication would be appropriate. Use of dentures in all meals and to chew well and to avoid those foods most dominantly causing obstructive process. I will review his pathology reports to ensure there is no sign of eosinophilic esophagitis or other competing etiologies. He will return to the ongoing care of Jessie Valenzuela PA-C as well. MD HOUSTON Guardado/MODL /[id number] Edelmira Gentile MD Copies: ~ Electronically Signed By: BISHNU A[place] MD 03/30/241950 PATIENT NAME: VICKIE FLOYD OPERATIVE REPORT DATE OF : 48 REPORT #: [id number] PHYSICIAN: BISHNU [place] MD PCP: ZOE PARRA PAC REPORT IS CONFIDENTIAL AND NOT TO BE RELEASED WITHOUT AUTHORIZATION
--- NOTE | 2024-04-01 12:00 | PATH ---
[facility] [address] [address] [facility] [place] [address] Signed SPECIMEN(S): A DISTAL ESOPHAGEAL BIOPSY SPECIMEN(S): B MID ESOPHAGEAL BIOPSY SPECIMEN SOURCE: A. DISTAL ESOPHAGEAL BIOPSY B. MID ESOPHAGEAL BIOPSY CLINICAL HISTORY: History Food impaction, low-grade esophageal stricture. Post: Low-grade esophageal stricture, hiatal hernia FINAL PATHOLOGIC DIAGNOSIS: A. Distal esophageal biopsy: - Esophageal and gastric mucosa with reactive features and mild chronic inflammation. - Negative for specialized intestinal metaplasia or dysplasia. B. Mid esophageal biopsy: - Benign esophageal epithelium, negative for increased epithelial eosinophils. JVR:cml MICROSCOPIC EXAMINATION: Histologic sections of all submitted blocks are examined by light microscopy. These findings, together with the gross examination, support the pathologic diagnosis. GROSS DESCRIPTION: A. The specimen, labeled and designated "Rueber, H, distal esophageal biopsy," is received in formalin and consists of two lind soft tissue fragments, ranging from 0.3-0.4 cm. Entirely submitted in (A1). B. The specimen, labeled and designated "Rueber, H, mid esophageal biopsy," is received in formalin and consists of two lind soft tissue fragments, ranging from 0.3 -0.4 cm. Entirely submitted in (B1). AB (under the direct supervision of a pathologist) The Gross Description was prepared using a voice recognition system. The report was reviewed for accuracy; however, sound-alike word errors, addition and/or deletions may occur. If there is any question about this report, please contact Client Services. PERFORMING LABORATORY: Technical component was performed by [facility], Jinny Aldrich, PATIENT NAME: VICKIE FLOYD JR PATHOLOGY DATE OF : 48 REPORT #: [id number] PHYSICIAN: CAREN CRUZ PCP: ZOE PARRA PAC REPORT IS CONFIDENTIAL AND NOT TO BE RELEASED WITHOUT AUTHORIZATION [facility] [address] [facility] [place], [place] [address] [place] [address] (CLIA# [id number]). Professional interpretation was performed by [facility], [address] [place] [phone] (CLIA#: [id number]). Diagnostician: Jaren Daley MD Pathologist Electronically Signed 04/01/2024 Copies: ~ PATIENT NAME: VICKIE FLOYD JR PATHOLOGY DATE OF : 48 REPORT #: [id number] PHYSICIAN: CAREN CRUZ PCP: ZOE PARRA PAC REPORT IS CONFIDENTIAL AND NOT TO BE RELEASED WITHOUT AUTHORIZATION
== END 2024-03-30 15:42 | disposition home or self-care (01) ==
LOC: DS 10:19
PROVIDERS: ATTEND Surgery
PROC: 0DB38ZX Excision of Lower Esophagus, Via Natural or Artificial Opening Endoscopic, Diagnostic (ICD-10-PCS; principal; 2024-03-30 12:15)
DX: K44.9 Diaphragmatic hernia without obstruction or gangrene (principal); K20.90 Esophagitis, unspecified without bleeding; K29.50 Unspecified chronic gastritis without bleeding; M10.9 Gout, unspecified; Z88.5 Allergy status to narcotic agent; Z89.519 Acquired absence of unspecified leg below knee
CPT/HCPCS: 00813; 88305; J0690; J2003; J2704; J7121